=== PATIENT | female | born 1950 | race Caucasian/White ===

== ENCOUNTER 2025-05-02 09:22 | Emergency (ER) | payer MEDICARE, BC ==
[~2025-05-02] VITALS: Ht 167.6 cm; Wt 63.5 kg
[2025-05-02 10:02] LABS: PLATELET COUNT (AUTO) 297 K/uL (150-450); RED BLOOD CELL COUNT(AUTO) 3.56 MIL/uL (4.0-5.2); RED CELL DISTRIBUTION WIDTH 13.5 % (11.5-15.0); WHITE BLOOD COUNT (AUTO) 8.0 K/uL (4.3-11.0)
[2025-05-02] MEDS ORDERED: ALBUTEROL FS 2.5 MG/3 ML VIAL.NEB ONE (10:10)
[2025-05-02] MEDS ORDERED: IPRATROPIUM NEB FS 0.5 MG/2.5 ML AMPUL.NEB ONE (10:11)
[2025-05-02 10:14] LABS: CALCIUM, SERUM 9.9 mg/dL (8.5-10.1); CREATININE 2.2 mg/dL (0.6-1.3); SODIUM SERUM 140 mmol/L (136-145); UREA NITROGEN, BLOOD 21 mg/dL (7-18)
[2025-05-02 10:18] VITALS: O2SAT 95
[2025-05-02] MEDS: IPRATROPIUM NEB FS 0.5 MG/2.5 ML AMPUL.NEB NEB ONE (10:18)
[2025-05-02] MEDS: ALBUTEROL FS 2.5 MG/3 ML VIAL.NEB NEB ONE (10:18)
[2025-05-02 10:26] VITALS: O2SAT 100
[2025-05-02 10:27] VITALS: O2SAT 100
[2025-05-02 10:28] LABS: ASPARTATE AMINOTRANSFERASE 17 U/L (15-37); NT-PRO BNP 294 pg/mL (0-125); TOTAL PROTEIN, SERUM 7.7 g/dL (6.4-8.2)
[2025-05-02 10:38] VITALS: O2SAT 100
[2025-05-02] MEDS: IV NS 0.9% 500 ML BAG IV ONE (11:02)
[2025-05-02] MEDS ORDERED: BENZ-13 PO (11:53)
[2025-05-02] MEDS ORDERED: BENZONATATE 100 MG CAPSULE PO ONE (12:10)
[2025-05-02] MEDS: BENZONATATE 100 MG CAPSULE PO ONE (12:14)
[2025-05-02 12:18] VITALS: BP 151/87; TEMP 98.1; O2SAT 100
== END 2025-05-02 12:25 | disposition home or self-care (01) ==
LOC: ER 09:26
DX: R06.02 Shortness of breath (principal); R05.9 Cough, unspecified; I10 Essential (primary) hypertension; J45.909 Unspecified asthma, uncomplicated; R07.9 Chest pain, unspecified; Z20.822 Contact with and (suspected) exposure to COVID-19
CPT/HCPCS: 99285; 71045; 87426; 93005; 87804 ×2; 85025; 80048; 80076; 36415; 84484; 83880; 94640; J7040